=== PATIENT | female | born 1970 | race Caucasian/White ===

== ENCOUNTER → 2016-12-12 | Outpatient (CLI) | payer BC ==
[2015-12-01 08:02] VITALS: BP 150/78
[~2016-12-12] MED LIST: CALC500T50 PO; ESTR0.3T PO; HYDR12.58 PO; MULT1TAB52 PO; OMEP20CA9 PO
--- NOTE | 2016-12-12 15:42 | KCIC ---
PROCEDURE Thyroid ultrasound dated 12/12/2016. HISTORY Enlarged thyroid gland. TECHNIQUE Routine sonographic imaging performed. COMPARISON None. FINDINGS Right lobe thyroid gland measures 4.6 x 1.3 x 1.7 centimeter. Left lobe measures 3.3 x 1.0 x 1.6 centimeter. Thyroid isthmus normal in thickness measuring 1.9 millimeter. Small complex cystic nodule at the midpole right thyroid gland measures 5 millimeters in size. Somewhat complex solid nodule at the medial lower right thyroid lobe measures 4 millimeters maximum dimension. IMPRESSION Indeterminate small cystic/solid nodules of the right thyroid lobe. Electronically signed by: Brian Henning (Dec 12, 2016 15:40:31)
== END | disposition home or self-care (01) ==
LOC: KCIC US 14:51
PROVIDERS: ATTEND Nurse Practitioner Family
DX: E04.2 Nontoxic multinodular goiter (principal)
CPT/HCPCS: 76536

== ENCOUNTER → 2017-11-08 | Outpatient (CLI) | payer BC ==
[~2017-11-08] MED LIST changes: -CALC500T50 PO; +CONTRAST GIVEN MC; -ESTR0.3T PO; -HYDR12.58 PO; +IOHEXOL 240 MG/ML 50ML VIAL. PO; +IOHEXOL 300 MG/ML 100ML VIAL. IV; -MULT1TAB52 PO; -OMEP20CA9 PO
[2017-11-08] MEDS: IOHEXOL 240 MG/ML 50ML VIAL. PO (09:00)
[2017-11-08] MEDS: IOHEXOL 300 MG/ML 100ML VIAL. IV (10:09)
== END | disposition home or self-care (01) ==
LOC: CT 08:32
DX: R10.84 Generalized abdominal pain (principal); I10 Essential (primary) hypertension; Z90.49 Acquired absence of other specified parts of digestive tract
CPT/HCPCS: 74177; Q9966; Q9967

== ENCOUNTER → 2018-02-20 | Outpatient (CLI) | payer BC | END | disposition home or self-care (01) | LOC: KCIC MRI 07:47 | DX: M22.41 Chondromalacia patellae, right knee (principal) | CPT/HCPCS: 73721 ==

== ENCOUNTER → 2018-11-25 | Outpatient (CLI) | payer BC ==
[2015-12-01 08:02] VITALS: BP 150/78
[~2018-11-25] MED LIST changes: +CALC500T54 PO; -CONTRAST GIVEN MC; +ESTR0.3T PO; +HYDR12.58 PO; -IOHEXOL 240 MG/ML 50ML VIAL. PO; -IOHEXOL 300 MG/ML 100ML VIAL. IV; +MULT1TAB52 PO; +OMEP20CA10 PO; +PRED50TA PO
--- NOTE | 2018-11-25 15:37 | KCIC ---
Bilateral digital screening mammograms with 3-D tomosynthesis: Reason for examination: Routine baseline screening. Bilateral mammograms in CC and oblique projections were obtained with 2-D imaging and 3-D tomosynthesis imaging on a Siemens Inspiration unit and reviewed on the workstation. Interpretation was made with the benefit of CAD. The skin and nipples show no abnormalities. No abnormal axillary lymph nodes are seen. The breast parenchyma shows scattered fatty and fibroglandular density. (Breast density: Category B.) There is a nodule consistent with a intramammary lymph node present at the 8:00 C position of the right breast and at the 2:00 B position of the left breast. There are no other dominant masses, suspicious calcifications or architectural distortion. Impression: No evidence of malignancy. Recommend routine screening. BI-RAD Category 2: Benign. "Our facility is accredited by the [employer] Mammography Program." This patient's information has been entered into a reminder system for the patient to be notified with the results of her examination and a target date for the next mammogram. Electronically signed by: Felicita Birch MD (11/25/2018 3:34 PM) [facility]
== END | disposition home or self-care (01) ==
LOC: KCIC MAMMO 08:06
PROVIDERS: ATTEND Family Medicine
DX: Z12.31 Encounter for screening mammogram for malignant neoplasm of breast (principal)
CPT/HCPCS: 77063; 77067

== ENCOUNTER 2019-01-13 10:42 | Emergency (ER) | payer BC ==
[~2019-01-13] VITALS: Ht 160 cm; Wt 81.6 kg
[~2019-01-13 10:42] MED LIST changes: -PRED50TA PO
[2019-01-13 11:11] VITALS: BP 181/95
[2019-01-13] MEDS ORDERED: predniSONE 10 MG TABLET PO ONE (11:30)
[2019-01-13] MEDS ORDERED: DIPHTH,PERTUSS(ACELL),TET TOX 0.5 ML DISP.SYRIN. VAX IM ONE (11:30)
[2019-01-13] MEDS ORDERED: diphenhydrAMINE HCL 25 MG CAPSULE PO ONE (11:30)
[2019-01-13] MEDS ORDERED: FAMOTIDINE 20 MG TABLET. PO ONE (11:30)
--- NOTE | 2019-01-13 11:56 | PHYS DOC ---
Past Medical History Past Medical History: GERD, Hypertension, Other Additional Past Medical Histor: endometriosis, colon polyps, Past Surgical History: Cholecystectomy, Hysterectomy, Tonsillectomy, Other Additional Past Surgical Histo: D&C, colonoscopies X3, cyst removed from Rt log[place] t Alcohol Use: None Drug Use: None Adult General Chief Complaint Chief Complaint: ALLERGIC REACTION HPI HPI Patient is a 48 year old female with history of hypertension, acid reflex, who presents to the ED today complaining of allergic reaction. Patient states yesterday she received a cortisone shot on the right foot for chronic foot pain, she states this is the third time she has received this shot. She believes she is having an allergic reaction. She states this morning she felt her face was flushed, she was hot, and came to the Ed for allergic reaction evaluation. Review of Systems Review of Systems Constitutional: Denies fever or chills [] Eyes: Denies change in visual acuity, redness, or eye pain [] HENT: Denies nasal congestion or sore throat [] Respiratory: Denies cough or shortness of breath [] Cardiovascular: No additional information not addressed in HPI [] GI: Denies abdominal pain, nausea, vomiting, bloody stools or diarrhea [] : Denies dysuria or hematuria [] Musculoskeletal: Denies back pain or joint pain [] Integument: Reports flushed face, feeling hot Neurologic: Denies headache, focal weakness or sensory changes [] All other systems were reviewed and found to be within normal limits, except as documented in this note. Current Medications Current Medications Current Medications Medications (Trade) Dose Ordered Sig/Lanre Start Time Stop Time Status Last Admin Dose Admin Diphenhydramine HCl (Benadryl) 25 mg 1X ONCE 01/13/19 11:30 01/13/19 11:31 DC 01/13/19 11:39 25 MG Diphtheria/ Tetanus/Acell Pertussis (Boostrix) 0.5 ml ONCE ONCE 01/13/19 11:30 01/13/19 11:31 Cancel Famotidine (Pepcid) 20 mg 1X ONCE 01/13/19 11:30 01/13/19 11:31 DC 01/13/19 11:40 20 MG Prednisone (Prednisone) 50 mg 1X ONCE 01/13/19 11:30 01/13/19 11:31 DC 01/13/19 11:40 50 MG Allergies Allergies Allergies Coded Allergies Type Severity Reaction Last Updated Verified No Known Drug Allergies 11/14/14 No Physical Exam Physical Exam Constitutional: Well developed, well nourished, no acute distress, non-toxic appearance. [] HENT: Normocephalic, atraumatic, bilateral external ears normal, oropharynx moist, no oral exudates, nose normal. [] Eyes: PERRLA, EOMI, conjunctiva normal, no discharge. [] Neck: Normal range of motion, no tenderness, supple, no stridor. [] Cardiovascular:Heart rate regular rhythm, no murmur [] Lungs & Thorax: Bilateral breath sounds clear to auscultation [] Abdomen: Bowel sounds normal, soft, no tenderness, no masses, no pulsatile mas ses. [] Skin: Warm, dry, no erythema, no rash. [] Back: No tenderness, no CVA tenderness. [] Extremities: No tenderness, no cyanosis, no clubbing, ROM intact, no edema. [] Neurologic: Alert and oriented X 3, normal motor function, normal sensory function, no focal deficits noted. [] Psychologic: Affect normal, judgement normal, mood normal. [] Current Patient Data Vital Signs Vital Signs Date Time Temp Pulse Resp B/P (MAP) Pulse Ox O2 Delivery O2 Flow Rate FiO2 01/13/19 11:11 98.2 63 18 181/95 (123) 97 Room Air 98.2 EKG EKG [] Radiology/Procedures Radiology/Procedures [] Course & Med Decision Making Course & Med Decision Making Pertinent Labs and Imaging studies reviewed. (See chart for details) This is a 48-year-old female patient presenting to the ED today complaining of an allergic reaction. Yesterday she received a cortisone shot on the right foot and believes she is having an allergic reaction. She states she feels flushed and hot. This is the third time she has received a cortisone shot to the foot. On physical exam we did not see any abnormal findings. There was no rash, her airway is open, no throat or tongue swelling. We did give her prednisone and Benadryl and Pepcid in the ED. We have evaluated her later, she still looks the same there is no signs of any allergic reaction. Reassured her. We discharged her with prednisone for 4 more days, Pepcid and Benadryl. Follow-up with her PCP in 1-2 weeks. Dragon Disclaimer Dragon Disclaimer This electronic medical record was generated, in whole or in part, using a voice recognition dictation system. Departure Departure Impression: Primary Impression: Allergic reaction Disposition: 01 HOME, SELF-CARE Condition: STABLE Referrals: GUERRERO WILLIAMSON MD (PCP) Follow-up with your doctor in one week Patient Instructions: Drug Allergy, [id number] Additional Instructions: You were evaluated in the emergency room for possible allergic reaction. We recommend you follow-up with your own doctor in the next 1-2 weeks. Take the prescribed medications as ordered. Continue taking your acid reflex medication and Benadryl. Scripts Prednisone (PREDNISONE) 50 Mg Tablet 1 TAB PO DAILY, #4 TAB Prov: CANDICE JOE APRN 01/13/19 Problem Qualifiers Primary Impression: Allergic reaction Encounter type: initial encounter Qualified Codes: T78.40XA - Allergy, unspecified, initial encounter CANDICE JOE APRN January 13, 2019 11:56
[2019-01-13] MEDS ORDERED: PRED50TA PO (12:03)
== END 2019-01-13 12:15 | disposition home or self-care (01) ==
LOC: ER 10:42
DX: T78.40XA Allergy, unspecified, initial encounter (principal); K21.9 Gastro-esophageal reflux disease without esophagitis; I10 Essential (primary) hypertension; Z90.49 Acquired absence of other specified parts of digestive tract; Z90.710 Acquired absence of both cervix and uterus; Z90.89 Acquired absence of other organs; M79.671 Pain in right foot; G89.29 Other chronic pain; X58.XXXA Exposure to other specified factors, initial encounter
CPT/HCPCS: 99284; J7512; Q0163

== ENCOUNTER → 2019-06-08 | Outpatient (CLI) | payer BC ==
[~2019-06-08] MED LIST changes: +PRED50TA PO
--- NOTE | 2019-06-08 13:52 | KCIC ---
LEFT DIAGNOSTIC 3-D MAMMOGRAPHY History: Left breast cyst infection April 2019. Treated with antibiotics. Lymph nodes swollen at time of infection. Symptoms have resolved. Comparison: Bilateral mammogram 11/25/2018. Technique: Routine tomosynthesis digital mammogram views were obtained. Findings: Breast Tissue Density B : There are scattered areas of fibroglandular density. Stable intramammary lymph node 2:00 B position. Marker at the area of concern is in the lower inner posterior breast. There are no dominant masses, suspicious microcalcifications or architectural distortion. IMPRESSION: No mammographic evidence of malignancy. Recommend routine mammogram screening. BI-RADS category 2: Benign findings. The images were reviewed with computer-aided detection. Patient information is entered into the reminder system with a target due date for the next screening mammogram. Mammography is the most sensitive method for finding small breast cancers, but it does not detect them all and is not a substitute for careful clinical examination. A negative mammogram does not negate a clinically suspicious finding and should not result in delay in biopsying a clinically suspicious abnormality. "Our facility is accredited by the [employer] Mammography Program." Electronically signed by: Adam Chase MD (06/08/2019 1:49 PM) [facility]
== END | disposition home or self-care (01) ==
LOC: KCIC MAMMO 12:51
PROVIDERS: ATTEND Nurse Practitioner Family
DX: N60.02 Solitary cyst of left breast (principal)
CPT/HCPCS: 77065; G0279; 77061

== ENCOUNTER → 2019-07-20 | Outpatient (CLI) | payer BC ==
--- NOTE | 2019-07-20 18:13 | RAD ---
STUDY: Ultrasound breast left INDICATION: Left breast cyst. COMPARISON: None. TECHNIQUE: Targeted diagnostic left breast mammography is performed in the area of concern. FINDINGS: At the far medial aspect of the left breast at the 9:00 position 15 cm from the nipple, an oblong heterogeneously hypoechoic structure is identified within the subcutaneous tissues that extends to the skin surface. This measures approximately 1.3 x 1.3 cm radial/antiradial with a depth of approximately 0.2 cm. This structure appears to exhibit a thin neck tracking into the deeper tissue as seen on image 9. No internal vascularity. Immediately adjacent is an additional heterogeneously hypoechoic structure within the subcutaneous tissues and extending to the skin surface that measures 0.4 cm antiradial by 0.6 cm radial and exhibits a depth of approximately 0.1 cm. No internal vascularity. IMPRESSION: At the far medial aspect of the left breast, 8:30 to 9:00 position 15 cm from the nipple, two adjacent avascular and complex appearing cystic foci are seen within the superficial soft tissues and extending to the skin surface. The larger of these foci seen at the 9:00 position does appear to exhibit a thin neck tracking into the deeper tissue. The overall sonographic appearance is more suggestive of an inflammatory process such as sebaceous cysts and these findings do not exhibit features typical of malignancy. Biopsy is not recommended at this time and clinical or surgical follow-up is felt more appropriate. Follow-up breast sonography only as deemed clinically necessary such as if more worrisome clinical features develop. BI-RADS 2: Benign findings Electronically signed by: FREDDY LOPEZ MD (07/20/2019 6:10 PM) [facility]
== END | disposition home or self-care (01) ==
LOC: US 15:12
PROVIDERS: ATTEND Nurse Practitioner Family
DX: N60.02 Solitary cyst of left breast (principal)
CPT/HCPCS: 76641

== ENCOUNTER → 2020-07-12 | Outpatient (CLI) | payer BC ==
[~2020-07-12] MED LIST changes: +MULT-445 PO; -MULT1TAB52 PO; -OMEP20CA10 PO; +OMEP20CA16 PO
--- NOTE | 2020-07-12 16:25 | KCIC ---
Right hand x-rays 3 views HISTORY: Right hand pain. FINDINGS: No fracture. No dislocation. No arthritic change. The soft tissues are unremarkable. IMPRESSION: No acute osseous injury. Electronically signed by: Ja Cespedes MD (07/12/2020 4:22 PM) [facility]
== END ==
LOC: KCIC 15:51
PROVIDERS: ATTEND Nurse Practitioner Family
DX: M79.641 Pain in right hand (principal)
CPT/HCPCS: 73130